=== PATIENT | female | born 1995 | race Caucasian/White ===

== ENCOUNTER 2024-10-30 19:28 | Emergency (ER) | payer MEDICARE, SELFPAY ==
--- NOTE | ~2024-10-30 | XR_ITS ---
CLINICAL HISTORY: Fecal impaction 1 view abdomen Comparison: None Findings: Normal bowel gas pattern. No abnormal calcifications. No pneumoperitoneum or pneumatosis. No acute fractures. Impression: 1. Abundant stool. This document has been electronically signed by: Jennifer Patel MD on 10/30/2024 21:20:03
[2024-10-30 19:50] VITALS: BP 102/69; BP 104/76; PULSE 83; PULSE 93; RESP 18; TEMP 37.2; O2SAT 98; O2SAT 99; BMI 26.2
[2024-10-30 19:57] VITALS: BP 102/69; PULSE 93; RESP 16; TEMP 37.2; O2SAT 98
--- NOTE | 2024-10-30 20:10 | ED.ABDPAIN ---
HPI - Abdominal Pain General Chief Complaint: Abdominal Pain Stated Complaint: abd pain 2days Time Seen by Provider: 10/30/24 20:01 Source: patient Mode of arrival: EMS Limitations: no limitations History of Present Illness ED Provider: HPI narrative: Patient's history of depression anxiety chronic constipation came from [place] inpatient psych for lower abdominal pain patient does have a history of chronic constipation has no bowel movement in last 5 days not eating well feel bloated been on MiraLax and lactulose without much success no fever no chills no urinary complaints Related Data Allergies Allergy/AdvReac Type Severity Reaction Status Date / Time bupropion [From Wellbutrin] Allergy Unknown Verified 10/30/24 19:56 lamotrigine [From Lamictal] Allergy Rash Verified 10/30/24 19:56 quetiapine [From Seroquel] Allergy Rash Verified 10/30/24 19:56 Review of Systems Review of Systems Yes all other systems are reviewed and are negative [facility] Social History Social History Smoked in Last 30 Days: No Use of substances other than those prescribed or required for medical reasons: No Advance Directives: No Advance Directives Information Provided: No Do you have a plan to hurt others: No Plan Patient : No Physical Exam ED Vital Signs: Vital Signs - 24 hr 10/30/24 19:50 10/30/24 19:57 10/30/24 22:20 Temperature 98.9 F 98.9 F 97.8 F Pulse Rate 93 93 89 Respiratory Rate 18 16 20 Blood Pressure 102/69 102/69 118/81 Pulse Oximetry 98 98 97 Oxygen Delivery Method Room Air Room Air 10/30/24 23:58 Temperature 97.5 F Pulse Rate 70 Respiratory Rate 18 Blood Pressure 111/72 Pulse Oximetry 97 Oxygen Delivery Method Room Air BMI result Body Mass Index 26.2 Appearance: Alert. Oriented X3. No acute distress. Eyes: PERRLA, No Nystagmus ENT: Pharynx normal. Oral Mucosa moist Neck: Normal inspection. Neck supple. CVS: Normal heart rate and rhythm. Pulses normal. Respiratory: No respiratory distress. Equal air entry bilateral, no wheezing/rales/rhonchi Abdomen: Soft and mild discomfort on deep palpation lower abdomen no rebound tenderness or guarding Bowel sounds are present, no mass palpable, no CVA tenderness Skin: Skin warm and dry. Normal skin color. Normal skin turgor. Extremities: No lower extremity edema. No calf tenderness Neuro: Oriented X 3. No motor deficit. Medical Decision Making Medical Decision Making MDM Narrative: Patient's constipation advised to take milk of magnesia and continue MiraLax as needed Radiology Impression Discussion of test interpretation with radiology: I have reviewed the radiologist's reading. Medications Administered Discontinued Medications Generic Name Dose Route Start Last Admin Trade Name Vashti PRN Reason Stop Dose Admin Magnesium Hydroxide 30 ml 10/30/24 20:14 10/30/24 20:22 Milk Of Magnesia 30 Ml Oral.Susp PO 10/30/24 20:15 30 ml NOW STA Administration Ondansetron HCl 4 mg 10/30/24 22:04 10/30/24 22:13 Ondansetron Odt 4 Mg Tab.Rapdis TRANSLINGU 10/30/24 22:05 4 mg ONCE ONE Administration Discharge Plan Discharge Clinical Impression: Constipation Patient Disposition: Home, Self-Care Instructions: Constipation (ED) Additional Instructions: Take MiraLax and senna daily Follow up with your PCP Print Language: [place]
[2024-10-30] MEDS: Milk of Magnesia 30 ML ORAL.SUSP PO (20:22)
[2024-10-30] MEDS: Ondansetron ODT 4 MG TAB.RAPDIS TRANSLINGU (22:13)
[2024-10-30 22:20] VITALS: BP 118/81; PULSE 89; RESP 20; TEMP 36.6; O2SAT 97
--- NOTE | 2024-10-30 23:19 | PC.NURSE ---
Report given to RNChalo at [facility]
[2024-10-30 23:58] VITALS: BP 111/72; PULSE 70; RESP 18; TEMP 36.4; O2SAT 97
[2024-10-31 01:57] VITALS: BP 111/72; PULSE 70; RESP 18; TEMP 36.4; O2SAT 97
== END 2024-10-31 01:58 | disposition home or self-care (01) ==
PROVIDERS: Emergency Provider Internal Medicine
DX: K59.00 Constipation, unspecified (principal); R10.2 Pelvic and perineal pain
CPT/HCPCS: 74018; 99283; 99284

== ENCOUNTER → 2024-10-30 20:14 | Outpatient (BNV) | payer MEDICARE, SELFPAY | PROVIDERS: Emergency Provider Internal Medicine; Visit Provider Radiology Diagnostic Radiology | DX: K56.41 Fecal impaction (principal) | CPT/HCPCS: 74018 ==